=== PATIENT | male | born 1990 | race Caucasian/White ===

== ENCOUNTER 2020-12-25 21:00 | Emergency (ER) | payer OTHER ==
[~2020-12-25] VITALS: Ht 170.2 cm; Wt 93.2 kg
[2020-12-25 22:20] VITALS: BP 132/75
--- NOTE | 2020-12-25 22:37 | PHYS DOC ---
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 Patient rates his pain 2/10 at rest, and worse upon movement. Patient reports that at 2019, his finger was smashed between his work baljeet and his work truck. Patient reports a laceration that bled for 5-10 minutes. Patient states his last tetanus vaccine was greater than 10 years ago. Patient has no other complaints at this time. Review of Systems: Review of Systems: ROS negative except as mentioned in HPI. Heart Score: C/O Chest Pain: No Current Medications: Current Medications Medications (Trade) Dose Ordered Sig/Onel Start Time Stop Time Status Last Admin Dose Admin Tetanus/ Diphtheria Toxoids (Tenivac Syringe) 0.5 ml ONCE ONCE 12/25/20 22:45 12/25/20 22:46 UNV Allergies: Allergies: Allergies Coded Allergies Type Severity Reaction Last Updated Verified No Known Drug Allergies 03/21/15 No Physical Exam: PE: Constitutional: Well developed, well nourished, no acute distress, non-toxic appearance. Cardiovascular: Heart rate regular rhythm, no murmur. Lungs & Thorax: Bilateral breath sounds clear to auscultation. Extremities: Left digit 4 with a 1.2 cm skin avulsion between MCP and PIP joints on the palmar surface, swelling limits range of motion. Extremities otherwise no tenderness, no cyanosis, no clubbing, ROM intact, no edema. Neurologic: Alert and oriented x3, normal motor function, normal sensory function, no focal deficits noted. Current Patient Data: Vital Signs: Vital Signs Date Time Temp Pulse Resp B/P (MAP) Pulse Ox O2 Delivery O2 Flow Rate FiO2 12/25/20 22:20 97.8 76 18 132/75 (94) 97 Room Air 97.8 Radiology/Procedures: Radiology/Procedures: Initial read of plain films done by Dr. Edward in the ED. No fracture seen on L digit 4 phalanges. Course & Med Decision Making: Course & Med Decision Making Pertinent Labs and Imaging studies reviewed. (See chart for details) Patient presents with an isolated injury to left digit 4. X-rays ordered to evaluate for fracture or dislocation. Patient's tetanus vaccine is not up-to- date, so will be updated here in the department. No acute fracture appreciated. Patient will be DC home with return precautions for infection or increased pain. Dragon Disclaimer: Dragon Disclaimer: This electronic medical record was generated, in whole or in part, using a voice recognition dictation system. Departure Departure Impression: Primary Impression: Contusion of finger of left hand Qualified Codes: S60.042A - Contusion of left ring finger without damage to nail, initial encounter Disposition: HOME / SELF CARE / HOMELESS Condition: STABLE Referrals: ARJUN MANN (PCP) Patient Instructions: Crush Injury, Fingers or Toes, [id number], RICE - Routine Care for Injuries, [id number] Additional Instructions: No fractures are seen on xrays today. You may treat the injury with RICE therapy instructions included in your paperwork. Please return to the department for any signs of infection (redness, discharge, fever) or worsening pain. NAYELI SMART Dec 25, 2020 22:37
[2020-12-25] MEDS ORDERED: TETANUS AND DIPHTHERIA TOX/PF 0.5 ML DISP.SYRIN. VAX IM ONE (22:45)
--- NOTE | 2020-12-25 23:57 | RAD ---
EXAM: XR FINGER(S)_LEFT 2+VIEWS_RT 12/25/2020 10:55 PM CLINICAL INDICATION: Left fourth digit crush injury COMPARISON: None TECHNIQUE: 3 views of the left fourth finger FINDINGS: No acute fracture. Alignment is normal. Joint spaces are maintained. Mild soft tissue swel ling. No radiopaque foreign body. IMPRESSION: No acute osseous abnormality. Mild soft tissue swelling of the fourth finger. Electronically signed by: Afia De La Torre MD (12/25/2020 11:55 PM) [facility]
== END 2020-12-25 23:35 | disposition home or self-care (01) ==
LOC: ER 21:00
DX: S60.042A Contusion of left ring finger without damage to nail, initial encounter (principal); J45.909 Unspecified asthma, uncomplicated; F17.200 Nicotine dependence, unspecified, uncomplicated; W23.0XXA Caught, crushed, jammed, or pinched between moving objects, initial encounter; Y93.89 Activity, other specified; Y92.89 Other specified places as the place of occurrence of the external cause; Y99.8 Other external cause status
CPT/HCPCS: 73140; 90471; 90714; 99283-25